=== PATIENT | female | born 1995 | race Two or more races ===

== ENCOUNTER 2017-08-04 15:42 | Emergency (ER) | payer OTHER ==
[2017-08-04] MEDS ORDERED: ACETAMINOPHEN 500 MG TABLET (FP) PO ONE (16:15)
[2017-08-04 16:16] VITALS: BP 124/69; PULSE 90; TEMP 99.1; BMI 25.7
--- NOTE | 2017-08-04 16:16 | PDOC ---
Rapid Medical Evaluation Chief Complaint: Respiratory Time Seen by Provider: 08/04/17 16:11 Medical Evaluation: 08/04/17 16:11 , 08/04/17 16:12 I have performed a brief in-person evaluation of this patient. The patient presents with a chief complaint of:chills, fevers, sorethroat C/O cough started yellow phlegm today , pleuritic CP , + fever and chills started 3 days ago, Body aches- prob Influenza but greater than 48hrs window, Pertinent physical exam findings: pale, quiet, red pharynx, and moist cough. I have ordered the following: Tylenol 1000mg PO, Urine Preg. The patient will proceed to the ED for further evaluation. 08/04/17 16:15
--- NOTE | 2017-08-04 18:02 | PDOC ---
History of Present Illness - General Chief Complaint: Respiratory Stated Complaint: CHEST PAIN Time Seen by Provider: 08/04/17 16:11 History Source: Patient Exam Limitations: No Limitations - History of Present Illness Initial Comments: 08/04/17 17:53 22 yr female with cough body aches sore throat started for 4 days ago no abd pain or urianry complaints no nvd Past History - Past Medical History Allergies/Adverse Reactions: Allergies Allergy/AdvReac Type Severity Reaction Status Date / Time No Known Allergies Allergy Verified 08/04/17 16:13 Home Medications: Ambulatory Orders NK [No Known Home Medication] 08/04/17 Other medical history: none - Suicide/Smoking/Psychosocial Hx Smoking History: Never smoked Respiratory Specific PMHX - Complaint Specific PMHX Angina: No Bronchitis: No Pneumonia: No Pulmonary Embolus: No TB (Tuberculosis): No Review of Systems - Review of Systems Able to Perform ROS?: Yes Is the patient limited Slovenian proficient: No Constitutional: Yes: Symptoms Reported HEENTM: Yes: Symptoms Reported Respiratory: Yes: Symptoms reported *Physical Exam - Vital Signs Last Vital Signs Temp Pulse Resp BP Pulse Ox 99.1 F 90 18 124/69 100 08/04/17 16:13 08/04/17 16:13 08/04/17 16:13 08/04/17 16:13 08/04/17 16:13 - Physical Exam General Appearance: Yes: Nourished, Appropriately Dressed HEENT: positive: EOMI, GERALD, TMs Normal, Pharyngeal Erythema, Tonsillar Erythema Neck: positive: Supple. negative: Lymphadenopathy (L) Respiratory/Chest: positive: Lungs Clear, Normal Breath Sounds. negative: Chest Tender, Respiratory Distress, Accessory Muscle Use, Crackles, Rales, Stridor, Wheezing, Hyperresonant Cardiovascular: positive: Regular Rhythm, Regular Rate Gastrointestinal/Abdominal: positive: Normal Bowel Sounds, Soft Musculoskeletal: positive: Normal Inspection Extremity: positive: Normal Inspection Integumentary: positive: Normal Color, Dry, Warm Neurologic: positive: Fully Oriented, Normal Response, Motor Strength 5/5 ED Treatment Course - ADDITIONAL ORDERS Additional order review: Laboratory Results 08/04/17 16:21 Urine HCG, Qual Negative - Medications Given in the ED: ED Medications Discontinued Medications Generic Name Dose Route Start Last Admin Trade Name Freq PRN Reason Stop Dose Admin Acetaminophen 650 mg 08/04/17 16:15 08/04/17 16:17 Tylenol - PO 08/04/17 16:16 650 mg ONCE ONE Administration Medical Decision Making - Medical Decision Making 08/04/17 17:58 cc: sore throat, body aches will send strep culture *DC/Admit/Observation/Transfer Diagnosis at time of Disposition: Viral URI - Discharge Dispostion Disposition: HOME Condition at time of disposition: Good - Referrals - Patient Instructions Additional Instructions: gargle with warm salt water 5-6 times a day take motrin 600mg every 8hrs for pain or fever increase vitamin c and zinc You should stay home from work, school, travel, shopping, social events, and public gatherings. Stay away from others as much as possible to keep from infecting them. If you must leave home, for example to get medical care, wear a facemask if you have one, or cover coughs and sneezes with a tissue. Wash your hands often to keep from spreading flu to others. return to ER for any worsening symptoms - Post Discharge Activity
== END 2017-08-04 18:38 | disposition home or self-care (01) ==
LOC: JERFT 15:42
DX: J06.9 Acute upper respiratory infection, unspecified (principal); B97.89 Other viral agents as the cause of diseases classified elsewhere
CPT/HCPCS: 84703; 87070; 87430; 99281-25